=== PATIENT | female | born 1940 | race Hispanic/Latino ===

== ENCOUNTER 2024-10-20 23:14 | Inpatient (IN) | payer OTHER ==
[~2024-10-20] VITALS: Ht 157.5 cm; Wt 61.7 kg
[2024-10-21] VITALS (11 sets, daily range): BP systolic 128–166; BP diastolic 64–75; PULSE 55–87; RESP 16–22; TEMP 97.7–101.6; O2SAT 92–98
[2024-10-21 00:04] LABS: BASOPHILS # (AUTO) 0.04 K/uL (0.00-0.20); BASOPHILS % (AUTO) 0.3 % (0.0-5.0); EOSINOPHILS # (AUTO) 0.17 K/uL (0.00-0.70); EOSINOPHILS % (AUTO) 1.2 % (0.0-8.0); HEMATOCRIT 29.4 % (36-48); IMMATURE GRANULOCYTE ABSOLUTE 0.06 K/uL (0-1); LYMPHOCYTES # (AUTO) 0.7 K/uL (1.0-4.8); LYMPHOCYTES % (AUTO) 5.2 % (21.0-51.0); MEAN CORPUSCULAR HEMOGLOBIN 29.8 pg (27.0-33.0); MEAN CORPUSCULAR HGB CONC 34.4 g/dL (32.0-36.0); MEAN CORPUSCULAR VOLUME 86.7 fL (79-99); MONOCYTES # (AUTO) 0.7 K/uL (0.1-1.0); MONOCYTES % (AUTO) 4.9 % (3.0-13.0); NEUTROPHILS # (AUTO) 12.5 K/uL (1.8-7.7); PLATELET COUNT (AUTO) 254 K/uL (130-400); RED BLOOD CELL COUNT(AUTO) 3.39 MIL/uL (4.00-5.50); RED CELL DISTRIBUTION WIDTH 14.3 % (11.0-15.5); WHITE BLOOD COUNT (AUTO) 14.2 K/uL (4.8-10.8)
[2024-10-21 00:16] LABS: CREATININE 1.3 mg/dL (0.5-1.0); POTASSIUM 3.8 mmol/L (3.5-5.1)
[2024-10-21 00:20] LABS: ALBUMIN 3.2 g/dL (3.5-5.0); BILIRUBIN,DIRECT 0.2 mg/dL (0.0-0.3); BILIRUBIN,TOTAL 0.4 mg/dL (0.2-1.0); MAGNESIUM 1.5 mg/dL (1.80-2.40); TOTAL PROTEIN, SERUM 7.2 g/dL (6.0-8.3)
[2024-10-21 01:18] LABS: SARS-CoV-2, RNA, NAAT NEGATIVE SARS CoV-2 (NEGATIVE)
[2024-10-21] MEDS: 0.9%NACL 1000ML 1,000 ML IV ONE (01:22)
[2024-10-21] MEDS: cefTRIAXone 1G VIAL IVPB ONE (01:23)
[2024-10-21] MEDS: acetaMINOPHEN 325 MG TAB PO ONE (01:23)
--- NOTE | 2024-10-21 01:48 | ERN ---
General Chief Complaint: Fever Stated Complaint: C/O COUGH, FEVER, CONGESTION, PAIN TO RT RIB AREA Time Seen by MD: 23:20 Time Seen by Midlevel: 23:20 Source: patient History of Present Illness Initial Comments Patient is an 83-year-old female with a past medical history of hypertension and hyperlipidemia presenting to the emergency department with cough and right-sided chest pain that started today. The patient reports being diagnosed with influenza a two days ago and was started on Tamiflu. The right-sided chest pain is worse with inspiration. Denies any recent fall or direct injury to the area. Denies taking any blood thinners. No other medical history reported at this time. Allergies: Coded Allergies: No Known Allergies (Unverified Allergy, Unknown, 10/20/24) Past Medical History Past Medical History: High Cholesterol, Hypertension Past Surgical History: Cholecystectomy ROS Dictation CONSTITUTIONAL: Negative except for HPI HEAD/FACE: Negative except for HPI EENT: Negative except for HPI RESPIRATORY: Negative except for HPI GASTROINTESTINAL/ABDOMINAL: Negative except for HPI GENITOURINARY: Negative except for HPI MUSCULOSKELETAL: Negative except for HPI INTEGUMENTARY: Negative except for HPI NEUROLOGICAL/PSYCH: Negative except for HPI HEMATOLOGIC/LYMPHATIC: Negative except for HPI All Systems Negative, Except as noted above. 13 point review of systems assessed and all negative except for above. Physical Exam Physical Exam Dictation Vital Signs reviewed General Appearance: Alert, oriented x 3, no acute distress, well developed, nourished. Head and Face: non-traumatic. Eyes: PERRL, pink conjunctivas, eyelid no trauma, anterior chamber with arcus senilis. Ears: Pinnas intact and no signs of trauma or erythema ear canals clear and no discharge TM no erythema Nose: No discharge, no bleeding. Oropharynx: Mouth normal, tongue pink, pharynx clear,no erythema, tonsils no exudates, no abscesses noted, mucous membrane moist Neck: Supple, non-tender, no thyromegaly, no masses, no JVD, no bruits Breast:Deferred Chest:No tenderness, no crepitus, no paradoxical movement, no retractions Lungs:Clear, well-ventilated, symmetric, no rales, no wheezing, rhonchi to right lower lobe, no stridor Heart: Regular rate, regular rhythm, no murmur, no gallops Vascular: no peripheral edema, Abdomen: Soft, positive bowel sounds, nondistended, no guarding, nontender, no rebound, no masses no hepatomegaly, no splenomegaly, no Koch's sign, no hernias. Rectal: Deferred Genital: Deferred Neurological: Normal speech, motor function intact, sensory function intact Musculoskeletal: Neck nontender, full range of motion, back nontender, full range of motion, Extremities: nontender, full range of motion Skin: Color pink, dry, no turgor, no rash, no lacerations, no abrasions, no contusions. Lymphatic: Deferred Results Laboratory and Microbiology Lab and Micro Result Laboratory Tests Test 10/20/24 23:39 10/20/24 23:50 White Blood Count 14.2 K/uL (4.8-10.8) H Red Blood Count 3.39 MIL/uL (4.00-5.50) L Hemoglobin 10.1 g/dL (12.0-16.0) L Hematocrit 29.4 % (36-48) L Mean Corpuscular Volume 86.7 fL (79-99) Mean Corpuscular Hemoglobin 29.8 pg (27.0-33.0) Mean Corpuscular Hemoglobin Concent 34.4 g/dL (32.0-36.0) Red Cell Distribution Width 14.3 % (11.0-15.5) Platelet Count 254 K/uL (130-400) Mean Platelet Volume 10.5 fL (7.5-10.5) Immature Granulocyte % (Auto) 0.4 % (0-1) Neutrophils (%) (Auto) 88.0 % (40.0-77.0) H Lymphocytes (%) (Auto) 5.2 % (21.0-51.0) L Monocytes (%) (Auto) 4.9 % (3.0-13.0) Eosinophils (%) (Auto) 1.2 % (0.0-8.0) Basophils (%) (Auto) 0.3 % (0.0-5.0) Neutrophils # (Auto) 12.5 K/uL (1.8-7.7) H Lymphocytes # (Auto) 0.7 K/uL (1.0-4.8) L Monocytes # (Auto) 0.7 K/uL (0.1-1.0) Eosinophils # (Auto) 0.17 K/uL (0.00-0.70) Basophils # (Auto) 0.04 K/uL (0.00-0.20) Absolute Immature Granulocyte (auto 0.06 K/uL (0-1) Nucleated Red Blood Cells 0.0 % (0.0-0.19) White Cell Morphology Comment See comments Sodium Level 134 mmol/L (136-145) L Potassium Level 3.8 mmol/L (3.5-5.1) Chloride Level 100 mmol/L (101-111) L Carbon Dioxide Level 27 mmol/L (21-32) Blood Urea Nitrogen 32 mg/dL (7-18) H Creatinine 1.3 mg/dL (0.5-1.0) H Glomerular Filtration Rate Calc 41 mL/min (>90) Random Glucose 161 mg/dL (70-105) H Lactic Acid Level 1.4 mmol/L (0.8-2.5) Total Calcium 8.8 mg/dL (8.5-10.1) Magnesium Level 1.50 mg/dL (1.80-2.40) L Total Bilirubin 0.4 mg/dL (0.2-1.0) Direct Bilirubin 0.2 mg/dL (0.0-0.3) Aspartate Amino Transf (AST/SGOT) 19 U/L (10-37) Alanine Aminotransferase (ALT/SGPT) 23 U/L (12-78) Alkaline Phosphatase 91 U/L (50-136) Total Creatine Kinase 140 U/L (21-232) Troponin I High Sensitivity 6 ng/L (4-50) Total Protein 7.2 g/dL (6.0-8.3) Albumin 3.2 g/dL (3.5-5.0) L Lipase 50 U/L (16-77) Procalcitonin 0.07 ng/mL (0.05-0.5) SARS-CoV-2, RNA, NAAT NEGATIVE SARS CoV-2 Group A Streptococcus Rapid negative (NEGATIVE) Labs Reviewed?: Yes MDM MDM: Differential diagnosis: Pneumonia, pleural effusion, pulmonary edema, influenza Rationale: Tests considered and ordered secondary to shared decision making include: Previous outside records reviewed: Old ER visits. Risk of complication and/or morbidity or mortality of patient management: None Medications-Per medication reconciliation Need for hospitalization: Patient does meet criteria for hospitalization. Need for emergency major/minor surgery: No There are no social concerns with this patient. Prescription drug management Prescriptions will include symptomatic care Patient's prior external medical records from other ER visits were reviewed by me as indicated. Prior testing and results from previous visits were reviewed. Prior tests were taken into account with medical decision making and resource utilization, independent historian/historians were used to obtain complete medical history. I independently interpreted the test that were performed, results were reviewed by me and considered findings on radiology if ordered. Medical management and examination interpretation discussions were had by me with other qualified healthcare professionals as indicated for the patient's care. The case was discussed with Dr. Bird who agrees to admit the patient for further observation and management. ED Course Orders Procedure Category Date Status Time Iv Insertion CPOE 10/20/24 Transmitted 23:23 Pulse Ox(Continuous) RT 10/20/24 Transmitted 23:23 Vital Signs Per CPOE 10/20/24 Transmitted Routine 23:23 12 Lead Ekg Tracing- EKG 10/20/24 Logged Technical 23:23 Cbc With Differential LAB 10/20/24 Complete 23:23 Blood Cult ROSEANN 10/20/24 In Process 23:23 Urinalysis Profile LAB 10/20/24 In Process 23:23 Culture Urine ROSEANN 10/20/24 Logged 23:23 Creatine Kinase, Total LAB 10/20/24 Complete 23:23 Troponin I High LAB 10/20/24 Complete Sensitivity 23:23 Lactic Acid LAB 10/20/24 Complete 23:23 Basic Metabolic Panel LAB 10/20/24 Complete 23:23 Procalcitonin LAB 10/20/24 Complete 23:25 Covid Rna Naat LAB 10/20/24 In Process 23:25 Influenza Type A & B, LAB 10/20/24 In Process Rapid 23:25 Chest 1vw RAD 10/20/24 Taken 23:25 Ct Chest W/O Contrast CT 10/20/24 Taken 23:43 Hepatic Function Panel LAB 10/20/24 Complete 23:39 Lipase LAB 10/20/24 Complete 23:39 Magnesium LAB 10/20/24 Complete 23:39 Ceftriaxone 1g Vial PHA 10/21/24 Complete (Rocephine 1g Inj) 00:30 0.9%Nacl 1000ml (Ns PHA 10/21/24 Complete 1000ml) 00:30 Acetaminophen 325 Tab PHA 10/21/24 Complete (Tylenol 325mg Tab 00:30 Rapid (Group A Strep) LAB 10/21/24 Complete 01:03 Current Medications Medications (Trade) Dose Ordered Sig/Tom Route PRN Reason Start Time Stop Time Status Last Admin Dose Admin Acetaminophen (TYLenol 325MG TAB) 650 mg ONCE ONCE PO 10/21/24 00:30 10/21/24 00:31 DC 10/21/24 01:23 Ceftriaxone Sodium (ROCEphine 1G INJ) 1 gm ONCE ONCE IVPB 10/21/24 00:30 10/21/24 00:31 DC 10/21/24 01:23 Sodium Chloride 1,000 ml @ 0 mls/hr ONCE ONCE IV 10/21/24 00:30 10/21/24 00:31 DC 10/21/24 01:22 Vital Signs Date Time Temp Pulse Resp B/P (MAP) Pulse Ox O2 Delivery O2 Flow Rate FiO2 10/21/24 01:32 101.7 91 19 157/65 95 Room Air* 0 21 10/21/24 01:23 101.7 10/20/24 23:17 102.6 102 22 167/60 96 Room Air Chest x-ray shows a right lower lobe infiltrate versus pleural effusion. CT scan ordered. CT scan reveals ground-glass opacities to the right lower lobe consistent with pneumonia DX & DISP Disposition: Inpatient Decision to Admit Date: Oct 21, 2024 Departure Impression: Primary Impression: Community acquired pneumonia Additional Impressions: Leukocytosis, Dehydration Condition: Stable Referrals: CITLALI QUEVEDO (PCP) I have reviewed the case, and I agree with, Diagnosis and Plan I performed the substantive portion of the visit. I have reviewed and personally made and approve the management plan that is documented in the note by myself or the DEO. I acknowledge for responsibility for the patient's managem ent plan. ARYAN SCHRADER Oct 21, 2024 01:48
[2024-10-21] MEDS ORDERED: acetaMINOPHEN 325 MG TAB PO PRN (02:00)
[2024-10-21] MEDS: cefTRIAXone 1G VIAL IVPB SCH (02:00)
[2024-10-21] MEDS ORDERED: ondanSETRON 4MG TABLET PO PRN (02:00)
[2024-10-21] MEDS ORDERED: IpraTROPium/alBUTERol SULFATE 3 ML SOLUTION IH PRN (02:00)
[2024-10-21 02:39] LABS: INFLUENZA TYPE A Negative For Type A (NEGATIVE); INFLUENZA TYPE B Negative For Type B (NEGATIVE)
[2024-10-21 02:40] LABS: APPEARANCE,URINE CLEAR (CLEAR); BILIRUBIN,URINE NEGATIVE (NEGATIVE); COLOR,URINE COLORLESS (YELLOW); GLUCOSE, URINE (UA) NEGATIVE (NEGATIVE); KETONES,URINE NEGATIVE (NEGATIVE); LEUKOCYTE ESTERASE ,URINE NEGATIVE Leu/uL (NEGATIVE); NITRATE,URINE NEGATIVE (NEGATIVE); PH,URINE 5.5 (5.0-8.0); PROTEIN,URINE NEGATIVE (NEGATIVE); UROBILINOGEN,URINE 0.2 mg/dL (0.2-1.0)
[2024-10-21 02:41] LABS: ADD UA MICROSCOPIC YES; MUCUS,URINE RARE LPF (None Seen); RBC,URINE 0-1 /HPF (0-1); WBC,URINE 0-1 /HPF (0-1)
[2024-10-21] MEDS ORDERED: GEMF600T89 PO (05:39)
[2024-10-21] MEDS ORDERED: BENZ-39 PO (05:39)
[2024-10-21] MEDS ORDERED: PANT40TA54 PO (05:39)
[2024-10-21] MEDS ORDERED: FURO20TA4 PO (05:39)
[2024-10-21] MEDS ORDERED: OSEL75CA17 PO (05:39)
[2024-10-21] MEDS ORDERED: ASPI-1197 PO (05:39)
[2024-10-21] MEDS ORDERED: METO-409 PO (05:39)
[2024-10-21] MEDS ORDERED: ATOR40TA69 PO (05:39)
[2024-10-21] MEDS ORDERED: LOSA100T59 PO (05:39)
--- NOTE | 2024-10-21 06:27 | EKG ---
[facility] Test Date: 2024-10-20 Test Time: 23:32:05 Pat Name: REBA MIN Department: [facility] Room: 422 1 Gender: F [employer] Founder: [id number] : 1940 Requested By: QI OVIEDO Order Number: [id number] Reading MD: Enrique Schwartz Measurements Intervals Archie Rate: 94 P: 52 AR: 153 QRS: -13 QRSD: 89 T: 16 QT: 338 QTc: 423 Interpretive Statements Sinus rhythm Consider anteroseptal infarct No previous ECG available for comparison Electronically Signed On 10-21-2024 19:43:15 INSURANCE BILLING SPECIALIST by Enrique Schwartz Please click the below link to view image of tracing.
--- NOTE | 2024-10-21 06:41 | HMCIMG ---
CT CHEST W/O CONTRAST HISTORY: Abnormal x-ray COMPARISON: None TECHNIQUE: Multiple sequential axial images of the chest were obtained from the thoracic inlet through upper abdomen. Patient was not given contrast through intravenous route. FINDINGS: Mild bilateral pulmonary infiltrates are seen with interstitial fibrosis. No pleural effusion or pericardial effusion is seen. There is no evidence of pneumothorax. There are normal size mediastinal and hilar lymph nodes. The heart is borderline enlarged. Coronary arterial calcifications are seen. Degenerative changes of the thoracolumbar spine are present. There is no evidence of adrenal nodule. Post cholecystectomy changes are seen. IMPRESSION: 1. Mild bilateral groundglass patchy pulmonary infiltrates with interstitial fibrosis. Coronary arterial calcifications are seen. CT was performed with one or more following dose reduction techniques: automated exposure control, adjustment of the mA and kv according to patient's size, or use of a iterative reconstruction technique.
[2024-10-21] MEDS: DOXYCYCLINE HYCLATE 100 MG TABLET PO SCH (08:47)
[2024-10-21] MEDS: acetaMINOPHEN 325 MG TAB PO PRN (08:47)
[2024-10-21] MEDS: OSELTAMIVIR PHOSPHATE 75 MG CAP PO SCH (08:47)
[2024-10-21] MEDS: ENOXAPARIN SODIUM 30 MG/0.3 ML SQ SCH (08:48)
--- NOTE | 2024-10-21 09:04 | HMCIMG ---
CHEST 1VW REASON: fever, cough, sob COMPARISON: 09/20/2010 FINDINGS: Single view of the chest was obtained. Lungs are clear. Heart size is normal. There is no pulmonary vascular congestion. Mediastinum and bony thorax appear unremarkable. IMPRESSION: 1. Normal single view chest x-ray.
[2024-10-21] MEDS: IpraTROPium/alBUTERol SULFATE 3 ML SOLUTION IH ONE (10:28)
--- NOTE | 2024-10-21 12:01 | NUR ---
[facility] CM MET WITH PT AND HER 2 DAUGHTERS SETER AND FRANKLYN IN PT'S ROOM THIS MORNING, ASSESSMENT DONE. PATIENT IS INDEPENDENT PRIOR TO ADMISSION, LIVES AT HOME WITH HER SON AND DAUGHTER IN LAW AND HER GRANDSON. PT HAS BPM MACHINE. VERIFIED CURRENT INSURANCE CHANGED TO [employer]#[id number], PCP CHANGED TO DR YVONNE GARRETT DR QUEVEDO . REGISTRATION UPDATED VIA SECURE FAX. [facility] HOME ONCE STABLE. CM TO CONTINUE TO FOLLOW UP. Addendum: 10/21/24 at 1209 by ANNMARIE STEPHENS LVN CM Amended: Links added.
[2024-10-21] MEDS: IpraTROPium/alBUTERol SULFATE 3 ML SOLUTION IH SCH (13:43)
[2024-10-21] MEDS: BENZONATATE 100 MG CAPSULE PO SCH (14:00)
[2024-10-21] MEDS: traMADol HCL 50 MG TABLET PO PRN (14:18)
--- NOTE | 2024-10-21 18:19 | HP ---
DATE OF SERVICE: 10/21/2024. HISTORY AND PHYSICAL PRESENTING COMPLAINT: Cough and pleuritic pain. HISTORY OF PRESENT ILLNESS: An 83-year-old female with history of hypertension, dyslipidemia, presented to the emergency room with cough, fever, and pleuritic pain. Pain localized to the right side posteriorly. No history of trauma or fall. According to the family, the patient was diagnosed with viral influenza infection 2 days ago. The patient's cough is nonproductive. T-max in the emergency room was 102.6. The patient also found with tachycardia, leukocytosis, and tachypnea. The patient is being admitted as a case of sepsis. CT chest shows pulmonary fibrosis and bilateral infiltrate. No sick contact, no recent travel. PAST MEDICAL HISTORY: * Hypertension. * Dyslipidemia. PAST SURGICAL HISTORY: Cholecystectomy. ALLERGIES: No known drug allergy. CURRENT MEDICATIONS: Reviewed. SOCIAL HISTORY: The patient denied alcohol, tobacco, or illicit drug use. FAMILY HISTORY: Noncontributory. REVIEW OF SYSTEMS: Greater than 10 systems were reviewed, negative except as documented above. PHYSICAL EXAMINATION: GENERAL: Elderly female, awake. VITAL SIGNS: Temperature 102.6, pulse 102, respiratory rate 20, BP 167/60. EYES: No icterus. Pupils equal and reactive. HENT: No oral lesions seen. Dry oral mucosa. NECK: Supple. No JVD or thyromegaly. LUNGS: Crackles bilaterally, no rhonchi. CARDIOVASCULAR SYSTEM: S1, S2 regular, tachycardic. No murmur heard. ABDOMEN: Full, soft, nontender. Bowel sound is present. CENTRAL NERVOUS SYSTEM: Awake, alert, and oriented x 3. No focal deficits. SKIN: No rashes, no itchiness. LYMPHATIC: No peripheral lymphadenopathy. BACK: No deformity, no pressure ulcer. MUSCULOSKELETAL: No joint swelling, erythema, or tenderness. LABORATORY DATA: Sodium 134, potassium 3.8, BUN 13, creatinine 1.3. WBC 14.2, hemoglobin 10.1, platelets 274. Urinalysis negative. Influenza antigen negative. COVID antigen negative. RADIOLOGY: CT chest shows bilateral pulmonary fibrosis, bilateral infiltrate. ASSESSMENT: An 83-year-old female presenting with cough and pleuritic pain. CURRENT PROBLEMS: Include: * Sepsis. * Pneumonia. * Viral influenza infection. * Dehydration. * Leukocytosis. PLAN: * Admit the patient to medical floor. * Start the patient on ceftriaxone. * Start the patient on Tamiflu. * Start the patient on doxycycline. * The patient will be placed on IV fluid. * Monitor electrolytes and correct as needed. * Tylenol as needed for pain or fever. * Zofran as needed for nausea and vomiting. * Follow up cultures. Thank you for allowing me to participate in the care of this patient. TID: [id number] RECEIPT: [id number] [facility]
[2024-10-22] VITALS (12 sets, daily range): BP systolic 132–165; BP diastolic 58–81; PULSE 56–91; RESP 16–20; TEMP 97.7–98.4; O2SAT 94–97
[2024-10-22 05:41] LABS: BASOPHILS # (AUTO) 0.07 K/uL (0.00-0.20); BASOPHILS % (AUTO) 1.1 % (0.0-5.0); EOSINOPHILS # (AUTO) 0.21 K/uL (0.00-0.70); EOSINOPHILS % (AUTO) 3.4 % (0.0-8.0); HEMATOCRIT 27.1 % (36-48); IMMATURE GRANULOCYTE ABSOLUTE 0.03 K/uL (0-1); LYMPHOCYTES # (AUTO) 1.3 K/uL (1.0-4.8); LYMPHOCYTES % (AUTO) 21.4 % (21.0-51.0); MEAN CORPUSCULAR HEMOGLOBIN 28.9 pg (27.0-33.0); MEAN CORPUSCULAR HGB CONC 32.8 g/dL (32.0-36.0); MONOCYTES # (AUTO) 0.4 K/uL (0.1-1.0); NEUTROPHILS # (AUTO) 4.1 K/uL (1.8-7.7); NEUTROPHILS % (AUTO) 66.6 % (40.0-77.0); PLATELET COUNT (AUTO) 250 K/uL (130-400); RED BLOOD CELL COUNT(AUTO) 3.08 MIL/uL (4.00-5.50); RED CELL DISTRIBUTION WIDTH 14.1 % (11.0-15.5); WHITE BLOOD COUNT (AUTO) 6.1 K/uL (4.8-10.8)
[2024-10-22 05:58] LABS: ALBUMIN 2.7 g/dL (3.5-5.0); BILIRUBIN,TOTAL 0.2 mg/dL (0.2-1.0); MAGNESIUM 1.6 mg/dL (1.80-2.40); POTASSIUM 3.7 mmol/L (3.5-5.1); TOTAL PROTEIN, SERUM 6.6 g/dL (6.0-8.3)
[2024-10-22] MEDS: MAGNESIUM 2GM PREMIX 50ML 50 ML IV PRN (06:34)
[2024-10-22] MEDS: ASPIRIN 81MG CHEW TAB PO SCH (08:45)
[2024-10-22] MEDS: atorVAStatin 40 MG TABLET PO SCH (08:46)
[2024-10-22] MEDS: furoSEMIDE 20 MG TABLET PO SCH (08:46)
[2024-10-22] MEDS: LoSARTan 100 MG TABLET PO SCH (08:46)
[2024-10-22] MEDS: metOPROLol sucCINATE 50 MG TAB.SR.24H PO SCH (08:46)
[2024-10-22] MEDS: PANTOPrazole 40 MG TAB DR PO SCH (08:46)
[2024-10-22] MEDS ORDERED: gemFIBROzil 600 MG TABLET PO SCH (09:00)
--- NOTE | 2024-10-22 21:31 | PN ---
INFECTIOUS DISEASE FOLLOWUP NOTE DATE OF SERVICE: 10/22/2024 SUBJECTIVE: The patient is seen and examined today. The patient has no fever, no chills. No nausea or vomiting. Still has some cough. No hemoptysis. Denies pleuritic pain. Appetite is good. No dysuria, no frequency. No joint pain or joint swelling. PHYSICAL EXAMINATION: VITAL SIGNS: Temperature 99.0. EYES: No icterus. Pupils equal and reactive. HENT: No oral lesions seen. Moist oral mucosa. NECK: Supple. No JVD or thyromegaly. LUNGS: Good air entry. No rales, no rhonchi. CARDIOVASCULAR: S1, S2 regular. No murmur heard. ABDOMEN: Full, soft, nontender. Bowel sounds present. CENTRAL NERVOUS SYSTEM: Awake, alert, oriented x 3. No focal deficits. SKIN: No rashes, no jaundice. LYMPHATIC: No peripheral lymphadenopathy. BACK: No deformity, no pressure ulcer. MUSCULOSKELETAL: No joint swelling, erythema, or tenderness. ASSESSMENT: An 83-year-old female admitted with cough, fever, and chills. CURRENT PROBLEMS: Include, * Sepsis. * Viral influenzae infection. * Pneumonia. * Dehydration. * Hypertension. PLAN: * Continue ceftriaxone. * Continue Tamiflu. * Continue doxycycline. * Continue pain management. * Continue nutritional support. * Monitor electrolytes. * Continue GI prophylaxis. TID: [id number] RECEIPT: [id number]
[2024-10-23] VITALS: BP 138/64; PULSE 65; RESP 18; TEMP 98.1
[2024-10-23 00:14] VITALS: PULSE 60; PULSE 62; RESP 18; O2SAT 97; O2SAT 98
--- NOTE | 2024-10-23 03:13 | NUR ---
BEDSIDE ROUNDS 10/22/241924 BEDSIDE REPORT RECEIVED FROM DAYSHIFT, PATIENT ALERT AND ORIENTED, PATIENT LYING IN BED, FAMILY AT BEDSIDE WITH PATIENT, PATIENT WITH NO COMPLAINTS OF ANY PAIN NOR DISCOMFORT AT THIS TIME, DISCUSSED PLAN OF CARE, MEDICATION REGIMEN AND PAIN MANAGEMENT WITH PATIENT, PATIENT VERBALIZED UNDERSTANDING. BED LOCKED IN LOWEST POSITION, SAFETY MEASURES IN PLACE, CALL LIGHT AND PERSONAL BELONGINGS LEFT WITHIN REACH.
[2024-10-23 04:00] VITALS: BP 149/68; PULSE 69; RESP 19; TEMP 98
[2024-10-23 06:07] LABS: MAGNESIUM 1.9 mg/dL (1.80-2.40); POTASSIUM 3.9 mmol/L (3.5-5.1)
[2024-10-23 06:39] VITALS: PULSE 59; RESP 18; O2SAT 100
[2024-10-23 08:00] VITALS: BP 123/48; PULSE 68; RESP 16; TEMP 98; O2SAT 98
[2024-10-23 11:14] VITALS: PULSE 66; RESP 18; O2SAT 97
--- NOTE | 2024-10-23 11:44 | NUR ---
D/C INSTRUCTIONS GIVEN; VERBALLY AND WRITTEN, DAUGHTER AT BEDSIDE, D/C'D PIV TO LT. FOREARM WITHOUT REDNESS, SWELLING OR TENDERNESS TO SITE, ESCORTED OUT VIA WC, NO DISCOMFORT NOTED.
--- NOTE | 2024-10-23 16:58 | DS ---
Discharge Summary Hospital Course This is a 83-year-old female patient with past medical history of hypertension, dyslipidemia, who presented to the emergency room with chief complaint of cough, fever, and pleuritic pain. Pain localized to the right side posteriorly. No history of trauma or fall. According to the family, the patient was diagnosed with viral influenza infection 2 days ago at her PCPs office. The patient's cough is nonproductive. T-max in the emergency room was 102.6 and a WBC of 14.2. The patient was also found with tachycardia, leukocytosis, and tachypnea. The patient is being admitted as a case of sepsis. CT chest showed pulmonary fibrosis and bilateral infiltrate. No sick contact, no recent travel. No growth reported the urine culture nor blood cultures. Patient will be discharged to home today. Prescription for levofloxacin x 5 days was written and has been instructed to complete the Tamiflu therapy.. FINAL DISCHARGE DIAGNOSIS; Pneumonia. Viral influenza infection, tested positive at PCP's office. Sepsis. Leukocytosis, resolved. Dehydration. PLAN: Discharge patient to home today. Patient is to complete Tamiflu therapy. Prescription for levofloxacin x 5 days. Follow with PCP in 3-5 days. This case was reviewed and discussed with my supervising physician and the above assessment and plan was formulated and agreed upon. ATTESTATION BY PHYSICIAN I have seen and examined the patient. I reviewed the documentation, medical decision making, and treatment plan as noted by the mid-level provider above. I agree with the findings and plan of care. LYDIA VERGARA MD, MIRTA L FNP Oct 23, 2024 16:58
== END 2024-10-23 11:50 | disposition home or self-care (01) | DRG 871 ==
LOC: EDH 23:14 → EDHIP 10-21 01:51 → 4DH 10-21 03:57
PROVIDERS: ADMIT Internal Medicine Infectious Disease; ATTEND Internal Medicine Infectious Disease
DX: A41.89 Other specified sepsis (principal); J10.08 Influenza due to other identified influenza virus with other specified pneumonia; J18.9 Pneumonia, unspecified organism; E86.0 Dehydration; I10 Essential (primary) hypertension; J84.10 Pulmonary fibrosis, unspecified; E78.00 Pure hypercholesterolemia, unspecified
CPT/HCPCS: 36415; 71045; 71250; 80048; 80053; 80076; 81001; 82550; 83605; 83690; 83735; 84145; 84484; 85025; 87040; 87086; 87635; 87804; 87880; 93005; 94640; 94664; 96365; 96366; 99285; G0378; J0696; J1650; J3475; J7030